=== PATIENT | female | born 1970 | race Caucasian/White ===

== ENCOUNTER 2020-09-21 12:55 | Emergency (ER) | payer OTHER ==
[~2020-09-21] VITALS: Ht 160 cm; Wt 65.0 kg
[2020-09-21 12:58] VITALS: BP 119/70
[2020-09-21] MEDS ORDERED: METF-815 PO (13:00)
[2020-09-21] MEDS ORDERED: IBUPROFEN 600MG TABLET PO STA (13:58)
[2020-09-21] MEDS ORDERED: BACITRACIN ZINC OINT UDPKT TOP ONE (15:45)
== END 2020-09-21 15:55 | disposition home or self-care (01) ==
LOC: ER 13:07
DX: M25.512 Pain in left shoulder (principal); M25.562 Pain in left knee; M25.552 Pain in left hip
CPT/HCPCS: 73030; 73502; 73562; 99284